=== PATIENT | female | born 1990 | race Caucasian/White ===

== ENCOUNTER 2018-12-12 19:30 | Inpatient (IN) | payer OTHER ==
[2018-12-13] MEDS ORDERED: Ibuprofen 800 MG TAB PO PRN (01:34)
[2018-12-13] MEDS ORDERED: Lactated Ringer's 1,000 ML IV SCH (01:34)
[2018-12-13] MEDS ORDERED: NS / Oxytocin 40 units/1000ml 1,000 ML IV PRN (01:34)
[2018-12-13] MEDS ORDERED: HYDROcodone/Acetaminophen 5/325 mg Tablet PO PRN ×2 (01:34)
[2018-12-13] MEDS ORDERED: NS w/ Oxytocin 10 units 500 ML IV SCH (01:34)
[2018-12-13] MEDS ORDERED: Lidocaine 1% (PF) 30 ML VIAL SC PRN (01:34)
[2018-12-13] MEDS ORDERED: Ondansetron PF 4 MG/2 ML Vial IVP PRN (01:34)
[2018-12-13] MEDS ORDERED: hydrALAZINE 20 MG/ML VIAL SLOW IVP PRN (01:34)
[2018-12-13] MEDS ORDERED: Promethazine HCl 25 MG/ML VIAL IM PRN (01:34)
[2018-12-13] MEDS ORDERED: Butorphanol Tartrate 1 MG/ML VIAL SLOW IVP PRN (01:34)
[2018-12-13] MEDS ORDERED: Misoprostol 100 MCG TAB VAG SCH ×2 (01:45→08:45)
[2018-12-13 01:50] VITALS: BMI 41.0
[2018-12-13 02:40] LABS: Hemoglobin 12.4 g/dL (12.0-16.0); Mean Corpuscular HGB CONC 34.6 g/dL (32.0-36.0); Mean Corpuscular Hemoglobin 31.9 pg (27.0-31.0); Mean Platelet Volume 10.6 fL (7.4-10.4); Platelet Count 164 thou/uL (130-400); RBC Distribution Width 11.2 % (11.5-14.5); White Blood Cell (WBC) Count 8.3 thou/uL (4.8-10.8)
[2018-12-13 03:19] LABS: HBSAg Index 0.34 S/CO (0-0.99); Hep B Surf Ag Non-Reactive S/CO (NonReactive)
[2018-12-13 04:54] LABS: Syphilis Antibody Nonreactive (Nonreactive); Syphilis Antibody Index 0.03 S/CO (<1.00 Non-Reactive)
[2018-12-13] MEDS ORDERED: Misoprostol 100 MCG TAB ONE (07:32)
--- NOTE | 2018-12-13 11:36 | ULT ---
Exam: Limited OB ultrasound HISTORY: Request is made to determine the amniotic fluid index FINDINGS: Single intrauterine gestation. Vertex presentation. Shadowing limits evaluation for the cervical ek th heart tones with a rate of 120 bpm Amniotic fluid index is 10.8 cm IMPRESSION: Amniotic fluid index is 10.8 cm
[2018-12-13] MEDS ORDERED: FLU VACC QS2019-20(6MOS UP)/PF 60 MCG/0.5 ML SYRINGE IM ONE (21:00)
--- NOTE | 2018-12-15 03:16 | DIS ---
DATE OF ADMISSION: 12/13/2018 DATE OF DISCHARGE: 12/13/2018 ADMISSION DIAGNOSIS: 40 weeks and 6 days gestational age of . DISCHARGE DIAGNOSIS: 40 weeks and 6 days gestational age of . HOSPITAL COURSE: Ms. Alberto Muñoz was admitted for planned cervical ripening with possible induction of labor on 12/13/2018. On 12/12/2018, she had Dilapan osmotic intracervical dilators inserted. They were removed at the hospital after approximately 12 hours with no cervical change noted from 1 cm prior to insertion to 1 cm 12 hours after insertion. During that time, she also received Cytotec for cervical ripening. After the Dilapan osmotic dilators were removed, she received an additional dose of 50 mcg of Cytotec for cervical ripening with no cervical change. The patient felt rare contractions during this trial of induction. The baby was moving well and had a reassuring tracing throughout. We discussed continuation of cervical ripening with Cook balloon versus discharge home and return to the hospital for induction again before next week. The patient and her discussed these 2 options after we reviewed the risks and benefits of both options. The patient requested discharge home after no cervical change with almost 24 hours of cervical ripening. She was discharged home in good condition with amniotic fluid index at 10.8 cm and a reassuring heart rate tracing. The patient was given Labor and Delivery warnings to return for loss of fluid or regular contractions. Otherwise, she is scheduled to return to the hospital on Tuesday evening for induction of labor. Job ID: [id number]
== END 2018-12-13 12:02 | disposition home or self-care (01) | DRG 833 ==
LOC: L&D 12-13 00:40
PROVIDERS: ADMIT Obstetrics & Gynecology; ATTEND Obstetrics & Gynecology
PROC: 3E02340 Introduction of Influenza Vaccine into Muscle, Percutaneous Approach (ICD-10-PCS; principal; 2018-12-13)
PROC: 3E0P7VZ Introduction of Hormone into Female Reproductive, Via Natural or Artificial Opening (ICD-10-PCS; 2018-12-13)
DX: O34.43 Maternal care for other abnormalities of cervix, third trimester (principal); Z3A.40 40 weeks gestation of pregnancy; Z23 Encounter for immunization
CPT/HCPCS: 36415; 76815; 85027; 86780; 86850; 86900; 86901; 87340

== ENCOUNTER 2018-12-15 14:10 | Inpatient (IN) | payer OTHER ==
[~2018-12-15 14:10] MED LIST: Bupivacaine HCl 0.5%/Epinephrine 1:200,000/PF 30 ml Vial ONE; Bupivacaine/Epinephrine 0.25% 30 ML VIAL ONE
[2018-12-15] MEDS ORDERED: Acetaminophen 500 MG TAB PO PRN (14:34)
[2018-12-15] MEDS ORDERED: Lidocaine 1% (PF) 30 ML VIAL SC PRN (14:34)
[2018-12-15] MEDS ORDERED: HYDROcodone/Acetaminophen 5/325 mg Tablet PO PRN ×2 (14:34)
[2018-12-15] MEDS ORDERED: Butorphanol Tartrate 1 MG/ML VIAL SLOW IVP PRN (14:34)
[2018-12-15] MEDS ORDERED: NS / Oxytocin 40 units/1000ml 1,000 ML IV PRN (14:34)
[2018-12-15] MEDS ORDERED: Promethazine HCl 25 MG/ML VIAL IM PRN ×2 (14:34→18:54)
[2018-12-15] MEDS ORDERED: Misoprostol 200 MCG TAB PR PRN (14:34)
[2018-12-15] MEDS ORDERED: Diphenoxylate HCl/Atropine Tablet PO PRN ×2 (14:34)
[2018-12-15] MEDS ORDERED: Carboprost 250 MCG/ML AMP IM PRN (14:34)
[2018-12-15] MEDS ORDERED: Ondansetron PF 4 MG/2 ML Vial IVP PRN ×2 (14:34→18:54)
[2018-12-15] MEDS ORDERED: Ibuprofen 800 MG TAB PO PRN (14:34)
[2018-12-15] MEDS ORDERED: hydrALAZINE 20 MG/ML VIAL SLOW IVP PRN (14:34)
[2018-12-15 15:07] VITALS: BMI 42.0
[2018-12-15] MEDS: Lactated Ringer's 1,000 ML IV SCH ×2 (15:42→23:00)
[2018-12-15 16:07] LABS: Hemoglobin 12.5 g/dL (12.0-16.0); Mean Corpuscular HGB CONC 32.8 g/dL (32.0-36.0); Mean Corpuscular Hemoglobin 30.7 pg (27.0-31.0); Mean Corpuscular Volume 93.5 fL (78.0-98.0); Mean Platelet Volume 10.2 fL (7.4-10.4); Platelet Count 159 thou/uL (130-400); RBC Distribution Width 11.5 % (11.5-14.5); Red Blood Cell (RBC) Count 4.08 mill/uL (4.20-5.40); White Blood Cell (WBC) Count 8.5 thou/uL (4.8-10.8)
[2018-12-15 16:27] LABS: ALT (SGPT) 9 U/L (8-55); AST (SGOT) 15 U/L (5-34); Albumin 3.1 g/dL (3.5-5.0); Alkaline Phosphatase 156 U/L (40-110); Anion Gap 11 mmol/L (10-20); BUN (Urea Nitrogen) 8 mg/dL (7.0-18.7); Bilirubin, Total 0.2 mg/dL (0.2-1.2); Calc. Creatinine Clearance 176 mL/min (70-130); Calcium 9.1 mg/dL (7.8-10.44); Carbon Dioxide 21 mmol/L (22-29); Chloride 109 mmol/L (98-107); Estimated GFR-MDRD Greater than 90; Glucose 95 mg/dL (70-105); Potassium 3.8 mmol/L (3.5-5.1); Protein, Total 6.1 g/dL (6.0-8.3); Sodium 137 mmol/L (136-145)
[2018-12-15] MEDS: NS w/ Oxytocin 10 units 500 ML IV SCH (16:30)
[2018-12-15 16:46] LABS: HBSAg Index 0.16 S/CO (0-0.99); Hep B Surf Ag Non-Reactive S/CO (NonReactive)
[2018-12-15 16:53] LABS: Syphilis Antibody Nonreactive (Nonreactive); Syphilis Antibody Index 0.03 S/CO (<1.00 Non-Reactive)
[2018-12-15 16:56] LABS: Creatinine, Urine 58.69 mg/dL (47-110); Protein, Urine Random Quant Less than 10 mg/dL (1-14)
--- NOTE | 2018-12-15 17:59 | PDOC.FPROB ---
FMR OB H&P: HPI - History of Present Illness Chief Complaint: Elevated BP, Post-dates Indentification: 28 year old at 41.0 wks History of Present Illness: 28 year old at 41.0 wks presents for post-dates IOL and elevated BP in clinic. Patient was scheduled for IOL several days ago. She did not make any progress, so she was sent home with return induction date. Due to elevated BP's in clinic, patient was sent over to L&D for admission and evaluation of BP. Patient denies vaginal bleeding, vaginal discharge, LoF. She endorses intermittent contractions. Patient endorses good movement. She states that she has been very swollen over the last several days. She denies any shortness of breath, headache, vision changes. Primary Care Physician: Dr. 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 Denies history of abnormal Pap smears. - Surgical History Sx History: [place] teeth extraction - Social History Social History: Remote history of tobacco use. States quit several years ago. History of marijuana use prior to . Denies alcohol use during . - Family History Family History: No significant PMH FMR OB H&P: Medications - Current Home Medications: Medication Instructions Recorded Confirmed Type Acetaminophen [Tylenol] 1,000 mg PO Q6HR PRN 12/13/18 12/13/18 History Calcium Carbonate [Tums] 1,300 mg PO DAILY 12/13/18 12/13/18 History Vitamin 1 tablet PO DAILY 12/13/18 12/13/18 History Allergies/Adverse Reactions: Allergies Allergy/AdvReac Type Severity Reaction Status Date / Time No Known Allergies Allergy Unverified 12/13/18 01:39 FMR OB H&P: ROS - Review of Systems General: denies: fever/chills, weight/appetite/sleep changes Eyes: denies: vision changes, scotomas ENT: denies: nasal congestion, sore throat Cardiovascular: reports: edema (diffuse). denies: chest pain, palpitation Respiratory: denies: cough, congestion, shortness of breath Gastrointestinal: denies: abdominal pain, nausea, vomiting Genitourinary (Female): reports: contractions. denies: dysuria, vaginal discharge, vaginal pain, vaginal bleeding Musculoskeletal: denies: pain, stiffness Neurologic: denies: numbness, syncope, weakness Integumentary: denies: itching, rash Hematologic/Lymphatic: denies: prolonged or excessive bleeding Psychological: denies: depression, anxiety FMR OB H&P: Vital Signs - Maternal Vital signs: BP 117/65 Pulse 83 Afebrile - Heart Tones Baseline: 135 Variability: moderate Acceleration: present Deceleration: absent Category: category 1 [place] contractions every: Irregular FMR OB H&P: Physical Exam - Physical Exam General: NAD, awake, alert and oriented HEENT: MMM, grossly normal vision, grossly normal hearing Heart: RRR, pulses present Deviation from normal: Patient visibly swollen, particularly in LE's but no pitting edema Abdomen: soft, gravid, non-tender Musculoskeletal: pulses present, FROM in all four extremities Neurological: no tremor, no focal deficit Skin: no rash, capillary refill <2 seconds Lymphatic: no unusual bruising or bleeding Psychiatric: intact recent and remote memory, good judgement and insight, normal mood and affect - Pelvic Exam SVE: /-3 Presentation: Cephalic FMR OB H&P: Results - Labs Lab results: Laboratory Results - last 24 hr 12/15/18 12/15/18 12/15/18 15:13 15:13 15:14 WBC RBC Hgb Hct MCV MCH MCHC RDW Plt Count MPV Sodium 137 Potassium 3.8 Chloride 109 H Carbon Dioxide 21 L Anion Gap 11 BUN 8 Creatinine 0.74 Estimated GFR (MDRD) Greater than 90 Glucose 95 Calcium 9.1 Total Bilirubin 0.2 AST 15 ALT 9 Alkaline Phosphatase 156 H Serum Total Protein 6.1 Albumin 3.1 L Globulin 3.0 Albumin/Globulin Ratio 1.0 L U Random Total Protein Less than 10 Urine Creatinine 58.69 Syphilis IgG/IgM Ab Hep Bs Antigen Non-Reactive Blood Type Antibody Screen 12/15/18 12/15/18 12/15/18 15:14 15:14 15:42 WBC 8.5 RBC 4.08 L Hgb 12.5 Hct 38.1 MCV 93.5 MCH 30.7 MCHC 32.8 RDW 11.5 Plt Count 159 MPV 10.2 Sodium Potassium Chloride Carbon Dioxide Anion Gap BUN Creatinine Estimated GFR (MDRD) Glucose Calcium Total Bilirubin AST ALT Alkaline Phosphatase Serum Total Protein Albumin Globulin Albumin/Globulin Ratio U Random Total Protein Urine Creatinine Syphilis IgG/IgM Ab Nonreactive Hep Bs Antigen Blood Type O NEGATIVE Antibody Screen NEGATIVE FMR OB H&P: A/P - Problem List (1) Post-dates Current Visit: Yes Status: Acute Code(s): O48.0 - POST-TERM (2) Elevated BP without diagnosis of hypertension Current Visit: Yes Status: Acute Code(s): R03.0 - ELEVATED BLOOD-PRESSURE READING, W/O DIAGNOSIS OF HTN (3) Rubella non-immune status, antepartum Current Visit: Yes Status: Acute Code(s): O99.89 - OTH DISEASES AND CONDITIONS COMPL PREG/CHLDBRTH; Z28.3 - UNDERIMMUNIZATION STATUS Disposition: 28 year old at 41.0 wks Post-dates IOL - 41.0 wks - 3, midposition, soft - Balloon placed and location verified. Filled to 80/80 over the course of 30 minutes to an hour. - Pitocin started in addition to balloon - Epidural if desired Rh negative - Rhogam given 09/08/2018 Rubella immune - Will need MMR vaccine PP Elevated BP without diagnosis of HTN - Will continue to monitor BP - Obtain pre-E labs (CBC, CMP, urine protein) Dispo: Admit to L&D for IOL. Discussion: Date/Time: 12/15/181758 This H&P was discussed with Dr. Lunsford who agrees with the above documentation and plan. Signature: Sharita Sheppard DO PGY-3 Addendum - Attending - Attending Attestation Date/Time: 12/15/182227 I personally evaluated the patient and discussed the management with Dr. Sheppard. I agree with the History, Examination, Assessment and Plan documented above.
[2018-12-15] MEDS ORDERED: Fentanyl 4 mcg/Bup 0.1% Cadd 100 ML ONE (18:02)
[2018-12-15] MEDS ORDERED: Lidocaine 1.5%/Epinephrine 1:200,000 5 ML AMPUL IJ ONE (18:29)
[2018-12-15] MEDS ORDERED: Lactated Ringer's 500 ML IV PRN (18:54)
[2018-12-15] MEDS ORDERED: diphenhydrAMINE 50 MG/ML VIAL IVP PRN (18:54)
[2018-12-15] MEDS ORDERED: Acetaminophen 325 MG TAB PO PRN (18:54)
[2018-12-15] MEDS ORDERED: Naloxone HCl 0.4 mg/ml Vial IVP PRN ×2 (18:54)
[2018-12-15] MEDS ORDERED: ePHEDrine/0.9% NaCl/PF SYRINGE 50 mg/10 ml SLOW IVP PRN (18:54)
[2018-12-15] MEDS ORDERED: Communication Order-Pharmacy FS SCH (19:00)
[2018-12-15] MEDS: Fentanyl 4 mcg/Bupivacaine 0.1% Cassette 100 ML EPIDURAL SCH (19:28)
[2018-12-16] MEDS ORDERED: Fentanyl 4 mcg/Bup 0.1% Cadd 100 ML ONE ×2 (02:48→09:58)
[2018-12-16] MEDS: Fentanyl 4 mcg/Bupivacaine 0.1% Cassette 100 ML EPIDURAL SCH ×2 (02:52→10:02)
[2018-12-16] MEDS ORDERED: Calcium Carbonate 500 MG ChewTAB PO PRN (05:09)
--- NOTE | 2018-12-16 08:38 | PDOC.EVN ---
Event Note - Event Note Event Note: Patient doing well. 9.5/100/0 at 8:00 AM Epidural for pain control Category I strip, reassuring status Continue pitocin for augmentation Cook's balloon deflated and removed at 3:36 AM, 5/80/0 at that time. SROM with clear fluid at around 3:40 AM Continue current plan of care.
[2018-12-16] MEDS ORDERED: FLU VACC QS2019-20(6MOS UP)/PF 60 MCG/0.5 ML SYRINGE IM ONE (09:00)
--- NOTE | 2018-12-16 09:31 | PRG ---
DATE OF SERVICE: 12/16/2018 TIME OF EVALUATION: 0900 hours to 0907 hours. LOCATION: Labor and Delivery Bed 4. I saw the patient at bedside during the time discussed along with Dr. Lan and Mariia, the patient's nurse. I was informed that the patient was complete at 0815 hours. I discussed with the patient second stage of labor management. We also discussed the new labor guidelines as well as the new peer review data that second stage of labor really should be limited to 3 hours maximum to prevent potential morbidity. Her 3-hour rusty will be at about 1115 hours to 1130 hours. She is currently laboring down due to her epidural in use. We did discuss passive pushing versus active, and I am okay with passive descent now as the baby looks well. heart tones are in the 130s to 140s. I did place a pulse ox on the mother to confirm that the mother's heart rate was different from the tracing and the mother's heart rate was in the 80s to 90s. She does have an external Doppler for the tracing, and it is distinct, separate, and reactive from the mother's. So we will begin pushing here when the patient is comfortable. The patient's family and spouse are at bedside. Once again, we discussed second stage of labor management and she is currently at just 1 hour in and allowing for passive descent. Her last station by the RN report still showed a station of about -1 or so, so we will have to see if the baby has good descent. At the 3-hour rusty, we will reassess to see if this is able to be done vaginally or if this will require section. There is no evidence of maternal or compromise at this time. Job ID: [id number]
--- NOTE | 2018-12-16 09:33 | PRG ---
DATE OF SERVICE: 12/16/2018 TIME OF DICTATION: 0921 hours. Labor and Delivery update. I was just called by Mariia, the patient's nurse, that Mariia has just checked her cervix herself and she is actually not complete. The patient is actually about 8 cm completely effaced and 0 station. So by previous time line placing her at delivery around 1115 hours will obviously change. I have asked Mariia to place an IUPC retractor to monitor the daily units. As she has just laid the patient back down, we will wait 30 minutes before doing the IUPC placement. Job ID: [id number]
[2018-12-16] MEDS: NS w/ Oxytocin 10 units 500 ML IV SCH (10:00)
[2018-12-16] MEDS ORDERED: Bicitra 30 ML UDCUP ONE (11:13)
[2018-12-16] MEDS ORDERED: Azithromycin 500 MG VIAL ONE (11:19)
[2018-12-16] MEDS ORDERED: Bupivacaine 0.5% 10 ML VIAL ONE (11:22)
[2018-12-16] MEDS ORDERED: Oxytocin 10 UNITS/ML VIAL ONE (11:25)
[2018-12-16] MEDS ORDERED: Ondansetron PF 4 MG/2 ML Vial ONE (11:25)
--- NOTE | 2018-12-16 11:36 | PRG ---
DATE OF SERVICE: 12/16/2018 TIME OF EVALUATION: 1115 to 1121 hours. LOCATION: [facility]. Please label this note preop . Preop DX: Failure to Progress (arrest of dilation) at 8cm In brief, this patient was a primigravida, who is at 41 weeks gestation and who has undergone a second trial of induction for a late term . I have evaluated the patient since I arrived at 0800 hours this morning, and after initially being informed that she was complete, her re-evaluation showed that she was 8 cm. After 4 hours of labor progress, she has not made any further dilation. Since 0700 to 1115 hours, cervix has remained at 8 cm dilation, completely effaced, and station is at 0 with caput. An IUPC has shown that there is adequate [place] units since placement. There is no reason to believe that she has not been adequate previous to IUPC placement. As she has been without cervical dilation for 4 hours, and after noting adequate contractions, despite the use of a uterotonic agent, and despite no progress from 0 station, the diagnosis has been made of arrest of progress with arrest of dilation. We have discussed continued observation versus primary per protocol. The patient agrees for primary , which is what I have recommended. Anesthesia is in the room for labor epidural dosage. We will give Zithromax and Ancef for preop antibiotics. will be performed ideally within the next 20 minutes or so, as we are awaiting the DIRECTOR OF COMM[employer]ITY LIFE to arrive so that we can take the patient back to the OR. Once again, Dr. Lan, myself, and Anesthesia are on-site awaiting for [employer] arrival and the OR is ready. Job ID: [id number] [facility]
[2018-12-16] MEDS ORDERED: MORPHINE 5 MG/10 ML PF VIAL ONE (12:10)
--- NOTE | 2018-12-16 12:45 | PDOC.OPDEL ---
OB Operative/Delivery Note Delivery Dr/Surgeon: Jaison Assist: Edyta Pre-Delivery Diagnosis: active labor, other (Failure to Dilate at 8cm) Weeks gestation: 41 (1 day) Anesthesia: epidural - Findings A Sex: male - 1 min: 9 - 5 min: 9 - Additional Findings/Plan Placenta delivered: spontaneous findings: low transverse hysterotomy without extension Estimated blood loss: 500 Post delivery plan: routine recovery (See Dictation: After my dictation was over, as patient was in the OR about to be moved to RR, vaginally had approx 500ml blood PV. I assessed her myself and I believe no further VB. No need at this time for other uterotonic as fundus firm. Vitals reviewed with Anesthesia ( PUSHER RUNNER)..she has BP 70s/50s BUT HR is 90. I really do not suspect PPH here at this time. I have ordered an [facility] stat in RR and we will follow. Also replaced leodan (RN) to help with UOP. Preop HCT was around 37)
--- NOTE | 2018-12-16 12:58 | OP ---
DATE OF PROCEDURE: 12/16/2018 TIME OF INTERVENTION: Roughly 12 o'clock noon. LOCATION: Labor and Delivery operating room. PREOPERATIVE DIAGNOSES: 1. Failure to progress, arrest of dilation at 8 cm. 2. A 41-week gestation. POSTOPERATIVE DIAGNOSES: 1. Failure to progress, arrest of dilation at 8 cm. 2. A 41-week gestation. PROCEDURES PERFORMED: 1. Low transverse section without extension. 2. Pfannenstiel skin incision. QUAL RESEARCH MANAGER: Jean Lan DO ANESTHESIA: Labor epidural. ANTIBIOTICS: Ancef and Zithromax per protocol. IV FLUIDS: About 1 L of crystalloid. URINE OUTPUT: About 200 mL blood-tinged urine. FINDINGS: 1. There is a vigorous with Apgars 9 and 9. 2. Three-vessel cord. 3. Intact placenta without meconium staining. 4. No nuchal cord. 5. Delayed cord clamp performed for about 60 seconds. 6. Hemostasis post repair. ESTIMATED BLOOD LOSS: 500 mL at maximum. COMPLICATIONS: None. COUNTS: Correct. DISPOSITION: To recovery room in good and stable condition. TECHNIQUE: After proper informed consent was explained and after reviewing with the patient the need for a primary , which was failure to progress at 8 cm , she was transported to the OR. She was dosed of her labor epidural anesthetic. The patient's abdomen was prepped and draped in the usual sterile fashion. A Pfannenstiel skin incision was made with a scalpel and Bovie cautery was used to dissect the subcutaneous tissue down to the level of the fascia. Fascia was identified, cleaned off any overlying fat, and entered with Bovie cautery on cut mode. Rectus muscles were out from the midline and were taken off the superior and inferior fascia with Voss scissors. Peritoneum was dissected by blunt dissection without complication. Entry into the abdominal pelvic cavity revealed no abnormalities. A low transverse hysterotomy was performed without bladder flap creation. This was done after the Jonathan O retractor was placed into the wound without complication. The baby was delivered in a cephalic presentation without complication. Shoulders and body followed in the usual manner. After delayed cord clamping, cord was doubly clamped, transected, and the baby was handed to the NICU team who was in the room for delivery. Placenta was gently massaged out of the uterine cavity and it was intact. Dry laparotomy sponge was used to curettage the uterine cavity and it was free of any retained products of conception. A #1 Monocryl was used to close the hysterotomy in a running locking fashion. Two layers were used for an imbricating second layer closure. After confirming hemostasis, there was a small area of visceral peritoneal bleed on the right hysterotomy side. This was suture ligated with a [id number], but was still very slightly oozy. We elected to place Rosangela for hemostasis at that site. This resolved the problem. After confirming hemostasis, we took out the Jonathan retractor. It is important to note that prior to Rosangela use, copious irrigation of the abdominopelvic cavity had been performed. After confirming that all counts were correct, the fascia was closed with 0 PDS suture x2 in a running nonlocking fashion. Subcutaneous tissue was copiously irrigated and then the skin was closed with kenna. The subcu tissue was not closed as it was less than the 2 cm measurement. In recovery, we will give the patient one dose of Lasix to help mobilize her lower extremity edema that she had antepartum. Called for episode of VB after dictation ended. See separate documentation in the "Delivery note" EMR entry. Total EBL now about 1000ml due to suspected brief AMANDA atony. Landers replaced, Stat H&H ordered. Follow. Pulse is 80s-90s with BP 70-80/60s (anesthesia effect?) Job ID: [id number] [facility]TDD
[2018-12-16 13:41] LABS: Hemoglobin 11.3 g/dL (12.0-16.0)
--- NOTE | 2018-12-16 13:45 | PDOC.EVN ---
Event Note - Event Note Event Note: PP h/h 11.3/33.6 from 12.5/38.1. BP has increased in recovery and pulse has remained 80-90. Approx 200mL additional vaginal bleeding in PP recovery. Pt is clinically stable and has no complaints. We will cont to monitor for any further bleeding and re-assess h/h as clinically indicated. Again, pt remains stable and uterine fundus remains firm.
--- NOTE | 2018-12-16 14:00 | PRG ---
DATE OF SERVICE: 12/16/2018 LOCATION: Recovery room. Please label this postop check. In brief, I just re-evaluated the patient in recovery. Her blood pressure is now 110s over 70s and her pulse is still 80s to 90s. As I walked in, Mariia was expressing about 200 mL of clot via vigorous fundal massage through the vagina. It is now firm. We did not give the Lasix in case she was intravascularly depleted. So, we are holding off on that medication for now rather than trying to mobilize her lower extremity edema. Again, we still continue to monitor her and her H and H value is still pending. For now, no new orders given. Job ID: [id number]
[2018-12-16] MEDS ORDERED: Carboprost 250 MCG/ML AMP ONE (14:13)
[2018-12-16] MEDS ORDERED: Misoprostol 200 MCG TAB ONE (14:13)
[2018-12-16] MEDS ORDERED: Tranexamic Acid 1,000 MG/10 ML VIAL ONE (14:22)
[2018-12-16] MEDS ORDERED: Tranexamic Acid 1,000 MG in Sodium Chloride 0.9% 250 ML 250 ML IVPB SCH (14:30)
--- NOTE | 2018-12-16 14:30 | PDOC.EVN ---
Event Note - Event Note Event Note: Called to bedside by nursing staff for continued PP vaginal bleeding. Pt has had approx 2L blood loss with surgery and PP period. BP has dropped slightly and mild increase in pulse rate; however, most recent check pulse 87 bpm. Cap refill is normal. Fundus remains firm at umbilicus. Given EBL of approx 2L will type and cross 2U PRBCs, and transfuse 1U PRBCs. Recheck h/h 4 hours post transfusion. Additionally, will give 1000mg TXA for PPH. Bimanual exam performed and remains normal without evidence of trauma. Bleeding amount appropriate with bimanual exam for immediate PP period. Will continue to monitor.
--- NOTE | 2018-12-16 14:43 | PRG ---
DATE OF SERVICE: 12/16/2018 INDICATION FOR BLOOD TRANSFUSION () TIME OF EVALUATION: 1415 hours until 1426 hours. LOCATION: Recovery. INDICATION: hemorrhage noticed in recovery room and hypotension. INDICATION IN BRIEF: I was called by Mora, the patient's nurse, for evaluation of a clot expressed per vagina. I arrived about 3 minutes after first call and found the patient to have no active vaginal bleeding. I performed a bimanual examination along with Dr. Lan at bedside and there was no retained clots in the lower uterine segment. The total EBL since delivery is about 2000 mL. Due to the patient's hypotension (blood pressure is 80/50), we have elected to type and cross for 2 units. We will give one unit over 4 hours. It is important to note that the patient is not actually tachycardic with her maximal pulse being in the 90s. As the is at bedside, I did ask if her color is pale and he stated that it was pale compared to her baseline. Case was also discussed with Mora. We will type and cross and give one unit now. I have also ordered tranexamic acid (TXA) 1 g as we are within 2 hours of our PPH event. Tranexamic acid will be given now and we will reassess for a second dose if necessary within 24 hours. If the patient continues to remain with hypotension, we will give the second unit. It is important to note that I did discuss this with the patient, partner, Dr. Lan, and Mora, the patient's nurse. I did explain that to the patient the need for blood now rather than later due to a total blood loss of about 2 L. I do suspect that this was a case of lower uterine segment atony and I have no reason to believe that she is having intraperitoneal bleeding. I do not believe this patient needs to go back to the operating room at this time, but we will keep in the acute recovery room at this time. I will not order uterotonics at this time as there is no further bleeding. If the patient is unresponsive to the blood and tranexamic acid, we may administer more uterotonics and may consider a re-exploration if necessary. Job ID: [id number]
[2018-12-16] MEDS ORDERED: Gentamicin Sulfate 120 MG in Premix Bag 1 BAG IVPB SCH (15:00)
[2018-12-16] MEDS ORDERED: Acetaminophen 500 MG TAB PO PRN (15:14)
--- NOTE | 2018-12-16 15:18 | PRG ---
DATE OF SERVICE: 12/16/2018 TIME OF EVALUATION: 1450 hours. LOCATION: Labor and Delivery Recovery Room. This is a fever note. In brief, I was just told that Ms. Muñoz's temperature was 100.6. Just prior to delivery, it was 100.2. She had received Ancef and Zithromax as perioperative medications. As her temperature is now greater than 100.4, I have diagnosed her with metritis. I have ordered ampicillin, gentamicin, and clindamycin to be given. Uterine infection/metritis may explain the hemorrhage. The triple antibiotics are being given to treat possible endometritis, although there is no direct evidence of sepsis at this time. We will continue with her fluid resuscitation, although we might be conservative because she is already experiencing bilateral lower extremity edema. Follow temperatures for now. Tylenol 1 g p.o. ordered. The patient is alert without altered mental status. Job ID: [id number]
[2018-12-16] MEDS ORDERED: Acetaminophen 1,000 MG in Premix Bag 1 BAG IVPB PRN (15:40)
[2018-12-16] MEDS ORDERED: Bicitra 30 ML UDCUP PO SCH (15:45)
--- NOTE | 2018-12-16 16:16 | PDOC.EVN ---
Event Note - Event Note Event Note: Bleeding has stopped after cytotec and TXA. BP has remained stable and increased to >100 systolic, pulse remains normal. IV abx are still being administered. 1U PRBCs has been given and completed @ 1540, as such will recheck h/h @ 2000 unless another significant bleeding episode occurs in which case will check sooner.
[2018-12-16] MEDS: Clindamycin/D5W 900 MG in Premix Bag 1 BAG IVPB SCH (16:57)
[2018-12-16] MEDS ORDERED: Morphine 4 MG/ML VIAL SLOW IVP PRN (17:13)
[2018-12-16] MEDS ORDERED: Sodium Chloride 0.9% 100 ML ONE (17:54)
[2018-12-16] MEDS: Ampicillin 2 GM in Sodium Chloride 0.9% 100 ML IVPB SCH (17:57)
[2018-12-16] MEDS ORDERED: Ampicillin 2 GM in Sodium Chloride 0.9% 100 ML IVPB SCH (18:00)
[2018-12-16] MEDS: Lactated Ringer's 1,000 ML IV SCH (21:43)
[2018-12-16] MEDS ORDERED: Clindamycin/D5W 900 MG in Premix Bag 1 BAG IVPB SCH (22:00)
[2018-12-16] MEDS: Gentamicin Sulfate 80 MG in Premix Bag 1 BAG IVPB SCH (22:55)
--- NOTE | 2018-12-17 00:23 | PDOC.PP ---
Post Progress Note Post Day #: Postop around 12 hours Subjective: Feels better, wants to eat PO intake tolerated: yes (ice chips) Flatus: yes Ambulation: yes Weight Weight 215 lb Vitals reviewed in QS...bps 110s/60-70s pulse 60-80s TMax was 100.6 yesterday afternoon when ABX started Good UOP - Physical Examination General: NAD Cardiovascular: no m/r/g Respiratory: clear to auscultation bilaterally Abdominal: + bowel sounds Extremities: negative homans (B) Skin: CS incision dry & intact (dressing on) Neurological: no gross focal deficits Psychiatric: A&Ox3, normal affect Result Diagrams: 12/16/18 13:28 12/15/18 15:13 Additional Labs: Post Labs Blood Type O NEGATIVE 12/15/18 15:42 Hep Bs Antigen Non-Reactive S/CO (NonReactive) 12/15/18 15:14 - Assessment/Plan Postop primary CS 12 hours; metritis on A/G.C...s/p 1 unit PRBC Continue postop care No further VB Only 1 unit given yesterday and responded well Check am HH Continue ABX
[2018-12-17] MEDS: Clindamycin/D5W 900 MG in Premix Bag 1 BAG IVPB SCH ×4 (01:21→23:52)
[2018-12-17] MEDS: Ampicillin 2 GM in Sodium Chloride 0.9% 100 ML IVPB SCH ×4 (06:15→19:03)
[2018-12-17 06:32] LABS: Hemoglobin 8.9 g/dL (12.0-16.0)
--- NOTE | 2018-12-17 07:02 | PDOC.EVN ---
Event Note - Event Note Event Note: AM Lab check: POD 1 HCT was 27 this AM Doing well On triples ABX Continue postop care, to PP patterson this AM
[2018-12-17] MEDS: Gentamicin Sulfate 80 MG in Premix Bag 1 BAG IVPB SCH ×3 (07:26→22:52)
[2018-12-17] MEDS ORDERED: Lanolin Ointment 7 GM TUBE TOP PRN (07:27)
[2018-12-17] MEDS ORDERED: Simethicone Chewable 80 MG TAB PO PRN (07:27)
[2018-12-17] MEDS ORDERED: Ondansetron PF 4 MG/2 ML Vial IVP PRN (07:27)
[2018-12-17] MEDS ORDERED: Acetaminophen 325 MG TAB PO PRN (07:27)
[2018-12-17] MEDS ORDERED: hydrALAZINE 20 MG/ML VIAL SLOW IVP PRN (07:27)
[2018-12-17] MEDS ORDERED: HYDROcodone/Acetaminophen 5/325 mg Tablet PO PRN (07:27)
[2018-12-17] MEDS: HYDROcodone/Acetaminophen 5/325 mg Tablet PO PRN ×2 (07:56→17:05)
[2018-12-17] MEDS: Lactated Ringer's 1,000 ML IV SCH ×4 (08:59→22:46)
[2018-12-17] MEDS: Docusate Calcium (SURFAK) 240 MG CAP PO SCH ×3 (09:00→20:58)
[2018-12-17] MEDS: Prenatal Vitamin 1 TAB PO SCH (10:48)
[2018-12-17] MEDS: Ibuprofen 800 MG TAB PO SCH ×3 (10:48→23:56)
--- NOTE | 2018-12-17 16:29 | PDOC.PP ---
Post Progress Note Post Day #: 1 Subjective: doing well, breast feeding, pete reg diet, no sx of anemia PO intake tolerated: yes Vital Signs (12 hours) Temp Pulse Resp BP Pulse Ox 12/17/18 14:00 98.6 F 96 16 130/63 98 12/17/18 09:00 98.5 F 101 H 15 116/59 L 12/17/18 08:50 98 Weight Weight 215 lb - Physical Examination General: NAD Respiratory: non-labored breathing Psychiatric: A&Ox3, normal affect Result Diagrams: 12/17/18 06:11 12/15/18 15:13 Additional Labs: Post Labs Blood Type O NEGATIVE 12/15/18 15:42 Hep Bs Antigen Non-Reactive S/CO (NonReactive) 12/15/18 15:14 (1) Delivery by section Code(s): [id number] - Status: Acute (2) Post-dates Code(s): O48.0 - POST-TERM Status: Acute - Assessment/Plan POD1 sp 1CS for failure to progress complicated by PPH and fever, sp 1U PRBCs and afebrile on IV abx at this time.
[2018-12-17] MEDS: NS w/ Oxytocin 10 units 500 ML IV SCH (18:56)
[2018-12-18] MEDS: Ampicillin 2 GM in Sodium Chloride 0.9% 100 ML IVPB SCH ×2 (01:06→06:52)
[2018-12-18 06:58] LABS: Hemoglobin 9.4 g/dL (12.0-16.0); Mean Corpuscular Hemoglobin 31.7 pg (27.0-31.0); Mean Platelet Volume 9.5 fL (7.4-10.4); Platelet Count 158 thou/uL (130-400); RBC Distribution Width 12.2 % (11.5-14.5); Red Blood Cell (RBC) Count 2.98 mill/uL (4.20-5.40); White Blood Cell (WBC) Count 11.3 thou/uL (4.8-10.8)
--- NOTE | 2018-12-18 08:09 | PDOC.PP ---
Post Progress Note Post Day #: 2 Subjective: no fever or chills, min discomfort, baby nursing well, pete reg diet PO intake tolerated: yes Flatus: yes Ambulation: yes Vital Signs (12 hours) Temp Pulse Resp BP Pulse Ox 12/18/18 04:20 98.9 F 84 18 114/58 L 12/17/18 23:55 98.7 F 86 18 112/58 L 12/17/18 20:10 99.3 F 89 18 130/62 98 Weight Weight 215 lb - Physical Examination General: NAD Respiratory: non-labored breathing Abdominal: no distention Skin: CS incision dry & intact, no rash Neurological: no gross focal deficits Psychiatric: A&Ox3, normal affect Result Diagrams: 12/18/18 06:15 12/15/18 15:13 Additional Labs: Post Labs Blood Type O NEGATIVE 12/15/18 15:42 Hep Bs Antigen Non-Reactive S/CO (NonReactive) 12/15/18 15:14 (1) Delivery by section Code(s): [id number] - Status: Acute (2) Post-dates Code(s): O48.0 - POST-TERM Status: Acute - Assessment/Plan POD2 doing well sp transfusion for PPH/anemia and IV abx for fever. Afebrile > 24 hrs, plan to DC abs today. Possible DC tomorrow.
[2018-12-18] MEDS: Prenatal Vitamin 1 TAB PO SCH (08:41)
[2018-12-18] MEDS: Ibuprofen 800 MG TAB PO SCH ×2 (08:41→16:25)
[2018-12-18] MEDS: Docusate Calcium (SURFAK) 240 MG CAP PO SCH ×2 (08:41→20:59)
[2018-12-18] MEDS: Lactated Ringer's 1,000 ML IV SCH ×2 (08:45→15:52)
[2018-12-18] MEDS ORDERED: Adacel (T-DAP) 0.5 ML SYRINGE IM ONE (09:00)
[2018-12-18] MEDS: Gentamicin Sulfate 80 MG in Premix Bag 1 BAG IVPB SCH (10:02)
[2018-12-18] MEDS: Clindamycin/D5W 900 MG in Premix Bag 1 BAG IVPB SCH (10:02)
[2018-12-18] MEDS: NS w/ Oxytocin 10 units 500 ML IV SCH (15:52)
[2018-12-19] MEDS: Ibuprofen 800 MG TAB PO SCH ×3 (00:30→16:20)
[2018-12-19] MEDS: Lactated Ringer's 1,000 ML IV SCH ×3 (00:48→14:32)
[2018-12-19] MEDS: Docusate Calcium (SURFAK) 240 MG CAP PO SCH ×2 (08:35→22:09)
[2018-12-19] MEDS: Prenatal Vitamin 1 TAB PO SCH (08:35)
--- NOTE | 2018-12-19 08:42 | PDOC.PP ---
Post Progress Note Post Day #: 3 Subjective: doing well, no concerns, minimal discomfort, no si/sx of anemia PO intake tolerated: yes Flatus: yes Ambulation: yes Vital Signs (12 hours) Temp Pulse Resp BP Pulse Ox 12/19/18 08:20 98.4 F 81 20 120/74 96 12/18/18 23:25 97 12/18/18 20:45 97 Weight Weight 215 lb - Physical Examination General: NAD Respiratory: non-labored breathing Abdominal: no distention Fundus firm & at: below umb Skin: CS incision dry & intact (kenna noted), no rash Neurological: no gross focal deficits Result Diagrams: 12/18/18 06:15 12/15/18 15:13 Additional Labs: Post Labs Blood Type O NEGATIVE 12/15/18 15:42 Hep Bs Antigen Non-Reactive S/CO (NonReactive) 12/15/18 15:14 (1) Delivery by section Code(s): [id number] - Status: Acute (2) Post-dates Code(s): O48.0 - POST-TERM Status: Acute - Assessment/Plan POD3 doing well, afebrile off abx for 24hrs, no symptoms of anemia at this time. Plan for DC home today.
[2018-12-19] MEDS ORDERED: Measles/Mumps/Rubella 10 MCG/0.5 ML VIAL SC ONE (12:00)
[2018-12-19] MEDS: HYDROcodone/Acetaminophen 5/325 mg Tablet PO PRN ×2 (12:38→22:08)
[2018-12-19] MEDS: NS w/ Oxytocin 10 units 500 ML IV SCH (14:32)
[2018-12-20] MEDS: Ibuprofen 800 MG TAB PO SCH ×2 (00:14→08:21)
[2018-12-20] MEDS: Lactated Ringer's 1,000 ML IV SCH ×2 (00:15→06:22)
[2018-12-20] MEDS: HYDROcodone/Acetaminophen 5/325 mg Tablet PO PRN (08:21)
[2018-12-20] MEDS: Docusate Calcium (SURFAK) 240 MG CAP PO SCH (08:21)
[2018-12-20] MEDS: Prenatal Vitamin 1 TAB PO SCH (08:21)
[2018-12-20 08:27] VITALS: BP 127/65; TEMP 98.1
--- NOTE | 2018-12-20 08:35 | PDOC.PP ---
Post Progress Note Post Day #: 4 Subjective: doing well, no changes since yesterday PO intake tolerated: yes Flatus: yes Ambulation: yes Vital Signs (12 hours) Temp Pulse Resp BP Pulse Ox 12/20/18 08:26 98.1 F 92 20 127/65 95 Weight Weight 215 lb - Physical Examination Skin: CS incision dry & intact Result Diagrams: 12/18/18 06:15 12/15/18 15:13 Additional Labs: Post Labs Blood Type O NEGATIVE 12/15/18 15:42 Hep Bs Antigen Non-Reactive S/CO (NonReactive) 12/15/18 15:14 (1) Delivery by section Code(s): [id number] - Status: Acute (2) Post-dates Code(s): O48.0 - POST-TERM Status: Acute - Assessment/Plan POD4, stayed yesterday so that baby could do bililights and no B and B rooms available. DC today planned.
== END 2018-12-20 14:45 | disposition home or self-care (01) | DRG 787 ==
LOC: L&D 14:10 → 3SW 12-17 09:04
PROVIDERS: ADMIT Obstetrics & Gynecology; ATTEND Obstetrics & Gynecology
PROC: 3E033VJ Introduction of Other Hormone into Peripheral Vein, Percutaneous Approach (ICD-10-PCS; 2018-12-15)
PROC: 10H07YZ Insertion of Other Device into Products of Conception, Via Natural or Artificial Opening (ICD-10-PCS; principal; 2018-12-16)
PROC: 10D00Z1 Extraction of Products of Conception, Low, Open Approach (ICD-10-PCS; 2018-12-16)
PROC: 30233N1 Transfusion of Nonautologous Red Blood Cells into Peripheral Vein, Percutaneous Approach (ICD-10-PCS; 2018-12-16)
DX: O48.0 Post-term pregnancy (principal); O72.1 Other immediate postpartum hemorrhage; O86.4 Pyrexia of unknown origin following delivery; O86.12 Endometritis following delivery; Z37.0 Single live birth; O26.893 Other specified pregnancy related conditions, third trimester; Z3A.41 41 weeks gestation of pregnancy; Z67.91 Unspecified blood type, Rh negative; O62.0 Primary inadequate contractions
CPT/HCPCS: 36415; 36430; 51702; 80053; 82570; 84156; 85014; 85018; 85027; 86780; 86850; 86900; 86901; 87340; 90471; 90686; 90707; C1726; G0008; J0290; J0456; J0670; J0690; J1580; J2270; J2274; J2405; J2590; J3490; P9016

== ENCOUNTER 2019-02-16 06:11 | Day surgery (SDC) | payer OTHER ==
[2019-02-15 12:02] VITALS: BMI 32.2
[2019-02-16 06:38] LABS: #Basophils 0.1 thou/uL (0.0-0.2); #Eosinphils 0.2 thou/uL (0.0-0.7); #Lymphocytes 2.5 thou/uL (1.20-3.40); #Monocytes 0.5 thou/uL (0.11-0.59); #Neutrophils 3.4 thou/uL (1.40-6.50); %Eosinophils 2.7 % (0.0-10.0); %Lymphocytes 38.1 % (21.0-51.0); %Monocytes 6.9 % (0.0-10.0); %Neutrophils 51.3 % (42.0-75.0); Hemoglobin 12.7 g/dL (12.0-16.0); Mean Corpuscular Hemoglobin 30.2 pg (27.0-31.0); Mean Corpuscular Volume 91.4 fL (78.0-98.0); Mean Platelet Volume 7.8 fL (7.4-10.4); Platelet Count 250 thou/uL (130-400); RBC Distribution Width 11.4 % (11.5-14.5); White Blood Cell (WBC) Count 6.6 thou/uL (4.8-10.8)
[2019-02-16] MEDS ORDERED: Fentanyl 100 MCG/2 ML VIAL ONE (06:38)
[2019-02-16] MEDS ORDERED: Midazolam HCl 2 mg/2 ml Vial ONE (06:38)
[2019-02-16 07:19] LABS: BHCG - Serum Negative (NEGATIVE); Pregs Control Background? CLEAR/WHITE (CLR/WHITE); Pregs Control Bar Appear? YES (CONTROL BAR)
[2019-02-16] MEDS ORDERED: Doxycycline Hyclate 100 MG VIAL ONE (08:07)
[2019-02-16] MEDS ORDERED: PROPOFOL 200 MG/20 ML VIAL ONE (11:28)
[2019-02-16] MEDS ORDERED: Ondansetron PF 4 MG/2 ML Vial ONE (11:28)
[2019-02-16] MEDS ORDERED: Dexamethasone 20 MG/5 ML VIAL ONE (11:28)
[2019-02-16] MEDS ORDERED: Ketorolac Tromethamine 30 MG/ML VIAL ONE (11:28)
[2019-02-16] MEDS ORDERED: Lidocaine 1% PF 5 ML VIAL ONE (11:28)
--- NOTE | 2019-02-16 16:26 | OP ---
DATE OF PROCEDURE: 02/16/2019 PREOPERATIVE DIAGNOSES: 1. Prolonged bleeding. 2. Suspect retained products of conception. POSTOPERATIVE DIAGNOSES: 1. Prolonged bleeding. 2. Suspect retained products of conception. PROCEDURES PERFORMED: 1. Cervical dilation. 2. Hysteroscopy. 3. Sharp curettage. PAINTER BOTTOM: None. ANESTHESIA: LMA. COMPLICATIONS: None. ESTIMATED BLOOD LOSS: Less than 20 mL. OPERATIVE FINDINGS: 1. Normal-appearing vagina and cervix. 2. Approximate 3 cm dense calcified tissue consistent with retained products of conception, removed. 3. Normal-appearing intrauterine cavity and bilateral tubal ostia noted. 4. No bleeding after procedure. PROCEDURE IN DETAIL: The patient was taken back to the OR with IV fluids running. Once she was in the OR, anesthesia was obtained. After the patient was asleep, she was placed in dorsal lithotomy position and the vagina was prepped and draped in normal fashion for hysteroscopy. The surgeon was gowned and gloved. The bladder was drained approximately 50 mL of urine. An operative speculum was placed in the vagina. A single-tooth tenaculum was used to grasp the anterior lip of the cervix. The cervix was serially dilated to approximately 18-[place]. The hysteroscope was then assembled with the fluid management system and primed. The hysteroscope was then gently placed through the dilated cervix with the abnormal-appearing tissue noted directly over the internal cervical os. The hysteroscope was then removed. A sharp curettage was performed with a scant amount of tissue removed. A polyp forceps was then gently passed through the cervix. The tissue was then grasped and removed as one large piece. This was sent for pathologic review. A sharp curettage then followed the removal of the large piece of products of conception and a small amount of tissue was then removed. Hysteroscope was then placed back through the cervix and the uterine cavity was distended with normal findings noted. No evidence of other abnormal tissue or retained products of conception. The camera and tenaculum were removed. The counts were correct. The cervix was inspected and a small amount of bleeding was noted from the tenaculum site, which was hemostatic after gentle pressure with a clean sponge. The patient was then cleaned, dried, taken off lithotomy position, extubated, and transferred to recovery room in good condition with plans for postoperative recovery and discharge home later today. Job ID: [id number]
== END 2019-02-16 10:44 | disposition home or self-care (01) ==
LOC: SDC 06:11
PROVIDERS: ATTEND Obstetrics & Gynecology
PROC: 0UDB8ZZ Extraction of Endometrium, Via Natural or Artificial Opening Endoscopic (ICD-10-PCS; principal; 2019-02-16)
DX: O72.2 Delayed and secondary postpartum hemorrhage (principal); Z79.899 Other long term (current) drug therapy; Z87.891 Personal history of nicotine dependence
CPT/HCPCS: 36415; 84703; 85025; 86850; 86900; 86901; 88305; J0690; J1100; J1885; J2001; J2250; J2405; J2704; J3010